=== PATIENT | female | born 1955 | race Caucasian/White ===

== ENCOUNTER 2017-12-15 17:25 | Inpatient (IN) | payer MEDICAID, OTHER ==
[~2017-12-15] VITALS: Ht 154.9 cm; Wt 91.2 kg
[2017-12-15] MEDS ORDERED: AMOX500C2 PO (18:30)
[2017-12-15] MEDS ORDERED: DIPH25TA19 PO (18:30)
[2017-12-15] MEDS ORDERED: OMEP20 PO (18:30)
[2017-12-15] MEDS ORDERED: TYL3B PO (18:30)
[2017-12-15] MEDS ORDERED: LISI-661 PO (18:30)
[2017-12-15 20:17] LABS: BASOPHILS % (AUTO) 1.3 % (0.0-2.0); EOSINOPHILS % (AUTO) 0.8 % (1.0-6.0); HEMATOCRIT 38.2 % (36-46); HEMOGLOBIN 12.7 g/dL (12.0-16.0); LYMPHOCYTES # (AUTO) 2.7 K/uL (1.0-4.8); LYMPHOCYTES % (AUTO) 43.9 % (22.0-44.0); MEAN CORPUSCULAR HEMOGLOBIN 26.8 pg (26.0-34.0); MEAN CORPUSCULAR HGB CONC 33.3 G/dL (31.0-37.0); MEAN CORPUSCULAR VOLUME 80 fL (80-100); MONOCYTES # (AUTO) 0.4 K/uL (0.1-1.0); MONOCYTES % (AUTO) 7.3 % (2.0-9.0); NEUTROPHILS # (AUTO) 2.9 K/uL (1.8-7.7); NEUTROPHILS % (AUTO) 46.7 % (40.0-70.0); PLATELET COUNT (AUTO) 235 K/uL (150-450); RED BLOOD CELL COUNT(AUTO) 4.75 MIL/uL (4.00-5.20); RED CELL DISTRIBUTION WIDTH 16.5 % (11.5-14.5)
[2017-12-15 20:21] LABS: APPEARANCE,URINE CLOUDY (CLEAR); BILIRUBIN,URINE NEGATIVE (NEGATIVE); GLUCOSE, URINE (UA) NEGATIVE (NEGATIVE); KETONES,URINE NEGATIVE (NEGATIVE); LEUKOCYTE ESTERASE ,URINE LARGE (NEGATIVE); NITRATE,URINE POSITIVE (NEGATIVE); OCCULT BLOOD,URINE TRACE (NEGATIVE); PH,URINE 6.5 (5.0-8.0); PROTEIN,URINE NEGATIVE (NEGATIVE); UROBILINOGEN,URINE 0.2 mg/dL (<=1.0)
[2017-12-15 20:23] LABS: ANION GAP 12 mmol/L (8-16); CALCIUM, TOTAL 8.3 mg/dL (8.8-10.5); CARBON DIOXIDE 26 mmol/L (22-29); CHLORIDE 105 mmol/L (98-107); CREATININE 0.71 mg/dL (0.60-1.30); GLOMERULAR FILTR. RATE CALC > 60 mL/min (>60); GLUCOSE,RANDOM 94 mg/dL (70-110); POTASSIUM 3.9 mmol/L (3.5-5.1); SODIUM SERUM 143 mmol/L (136-145); UREA NITROGEN, BLOOD 12 mg/dL (7-18)
[2017-12-15 20:27] LABS: AMPHET/METH SCREEN,URINE NEGATIVE (NEGATIVE); BARBITURATE SCREEN, URINE NEGATIVE (NEGATIVE); BENZODIAZEPINES SCREEN,URINE NEGATIVE (NEGATIVE); CANNABINOID SCREEN,URINE NEGATIVE (NEGATIVE); COCAINE SCREEN,URINE NEGATIVE (NEGATIVE); METHADONE SCREEN, URINE NEGATIVE (NEGATIVE); OPIATE SCREEN,URINE NEGATIVE (NEGATIVE)
[2017-12-15 20:29] LABS: PHENCYCLIDINE SCREEN,URINE NEGATIVE (NEGATIVE)
[2017-12-15 20:29] LABS: ALANINE AMINOTRANSFERASE 35 U/L (12-78); ALBUMIN 3.5 g/dL (3.4-5.0); ALKALINE PHOSPHATASE 123 U/L (46-116); ASPARTATE AMINOTRANSFERASE 26 U/L (15-37); BILIRUBIN,TOTAL 0.2 mg/dL (0.1-1.0); TOTAL PROTEIN, SERUM 7.2 g/dL (6.4-8.2)
[2017-12-15 21:11] LABS: BACTERIA,URINE Many /HPF (None Seen); RBC,URINE 0-2 /HPF (0-2); WBC,URINE >100 /HPF (0-5)
[2017-12-15 21:12] LABS: SQUAMOUS EPITHELIAL CELL,UR Moderate /LPF (None Seen)
[2017-12-15] MEDS ORDERED: HALOPERIDOL 5 MG TABLET PO PRN (21:45)
[2017-12-16] MEDS: ZOLPIDEM TARTRATE 10 MG TABLET PO PRN (00:41)
[2017-12-16] MEDS: LORazepam 2 MG TABLET PO PRN ×2 (00:41→09:45)
[2017-12-16 00:54] VITALS: BP 153/94
[2017-12-16] MEDS ORDERED: PNEUMOCOCCAL VACCINE POLYVALENT 0.5 ML VIAL [PPSV23] IM ONE (01:15)
[2017-12-16 05:56] LABS: BASOPHILS % (AUTO) 1.3 % (0.0-2.0); EOSINOPHILS % (AUTO) 2.1 % (1.0-6.0); HEMATOCRIT 38.1 % (36-46); HEMOGLOBIN 12.7 g/dL (12.0-16.0); MEAN CORPUSCULAR HEMOGLOBIN 26.7 pg (26.0-34.0); MEAN CORPUSCULAR HGB CONC 33.3 G/dL (31.0-37.0); MEAN CORPUSCULAR VOLUME 80 fL (80-100); MONOCYTES # (AUTO) 0.5 K/uL (0.1-1.0); MONOCYTES % (AUTO) 7.4 % (2.0-9.0); NEUTROPHILS # (AUTO) 2.7 K/uL (1.8-7.7); NEUTROPHILS % (AUTO) 42.2 % (40.0-70.0); PLATELET COUNT (AUTO) 209 K/uL (150-450); RED BLOOD CELL COUNT(AUTO) 4.75 MIL/uL (4.00-5.20); RED CELL DISTRIBUTION WIDTH 16.6 % (11.5-14.5)
[2017-12-16 06:04] LABS: HEMOGLOBIN A1C 5.7 % (4.5-6.2)
[2017-12-16 06:20] LABS: ALANINE AMINOTRANSFERASE 34 U/L (12-78); ALBUMIN 3.3 g/dL (3.4-5.0); ALKALINE PHOSPHATASE 110 U/L (46-116); ANION GAP 7 mmol/L (8-16); ASPARTATE AMINOTRANSFERASE 25 U/L (15-37); BILIRUBIN,TOTAL 0.5 mg/dL (0.1-1.0); CALCIUM, TOTAL 7.9 mg/dL (8.8-10.5); CARBON DIOXIDE 26 mmol/L (22-29); CHLORIDE 105 mmol/L (98-107); CHOL/HDL RATIO 2.7 (3.9-5.7); CHOLESTEROL 133 mg/dL (131-200); CREATININE 0.64 mg/dL (0.60-1.30); GLOMERULAR FILTR. RATE CALC > 60 mL/min (>60); GLUCOSE,RANDOM 81 mg/dL (70-110); HDL CHOLESTEROL 50 mg/dL (40-60); LDL CHOL (CALC.) 56 mg/dL (0-130); POTASSIUM 3.6 mmol/L (3.5-5.1); SODIUM SERUM 138 mmol/L (136-145); THYROID STIMULATING HORMONE 2.78 uIU/mL (0.36-3.74); TOTAL PROTEIN, SERUM 7.1 g/dL (6.4-8.2); TRIGLYCERIDES 135 mg/dL (15-150); UREA NITROGEN, BLOOD 11 mg/dL (7-18)
[2017-12-16] MEDS ORDERED: CloNIDine HCL 0.1 MG TABLET PO PRN (06:30)
[2017-12-16] MEDS ORDERED: MAGNESIUM HYDROXIDE SUSPENSION 30 ML UDCUP PO PRN (06:30)
[2017-12-16] MEDS ORDERED: GuaiFENesin/D-METHORPHAN [SUGAR-FREE] 200-20MG/10 ML SYRUP UDCUP PO PRN (06:30)
[2017-12-16] MEDS ORDERED: LOPERAMIDE HCL 2 MG CAPSULE PO PRN (06:30)
[2017-12-16] MEDS ORDERED: DOCUSATE SODIUM 100 MG CAPSULE PO PRN (06:30)
[2017-12-16] MEDS ORDERED: ALBUTEROL SULFATE HFA 90 MCG/PUFF 8 GM INHALER IH PRN (06:30)
[2017-12-16] MEDS ORDERED: MAG HYDROX/AL HYDROX/SIMETH ES 30 ML SUSPENSION UDCUP PO PRN (06:30)
[2017-12-16] MEDS ORDERED: ONDANSETRON HCL 4 MG TABLET PO PRN (06:30)
[2017-12-16] MEDS ORDERED: PETROLATUM,WHITE 71 GM JELLY TP PRN (06:30)
[2017-12-16 08:05] VITALS: BP 161/105
[2017-12-16] MEDS: CIPROFLOXACIN HCL 500 MG TABLET PO SCH ×2 (09:45→16:55)
[2017-12-16] MEDS: OLANZapine 5 MG RAPDIS TABLET PO SCH (16:55)
[2017-12-17 03:05] VITALS: BP 162/100
[2017-12-17 08:11] VITALS: BP 158/100
[2017-12-17] MEDS ORDERED: OMEPRAZOLE 20 MG CAPSULE PO SCH (09:00)
[2017-12-17] MEDS: OLANZapine 5 MG RAPDIS TABLET PO SCH ×2 (09:22→16:37)
[2017-12-17] MEDS: OMEPRAZOLE 20 MG CAPSULE PO SCH (09:22)
[2017-12-17] MEDS: LISINOPRIL 10 MG TABLET PO SCH (09:22)
[2017-12-17] MEDS: CIPROFLOXACIN HCL 500 MG TABLET PO SCH ×2 (09:22→16:37)
[2017-12-17 20:31] VITALS: BP 152/98
[2017-12-18 04:16] VITALS: BP 149/79
[2017-12-18] MEDS: OLANZapine 5 MG RAPDIS TABLET PO SCH ×2 (09:21→16:32)
[2017-12-18] MEDS: LISINOPRIL 10 MG TABLET PO SCH (09:21)
[2017-12-18] MEDS: CIPROFLOXACIN HCL 500 MG TABLET PO SCH ×2 (09:21→16:32)
[2017-12-18] MEDS: OMEPRAZOLE 20 MG CAPSULE PO SCH (09:21)
[2017-12-18 10:23] VITALS: BP 140/95
[2017-12-18 19:04] VITALS: BP 136/86
[2017-12-18] MEDS: ZOLPIDEM TARTRATE 10 MG TABLET PO PRN (20:35)
[2017-12-19 09:23] VITALS: BP 152/90
[2017-12-19] MEDS: LISINOPRIL 10 MG TABLET PO SCH (09:29)
[2017-12-19] MEDS: CIPROFLOXACIN HCL 500 MG TABLET PO SCH ×2 (09:29→16:29)
[2017-12-19] MEDS: OLANZapine 5 MG RAPDIS TABLET PO SCH ×2 (09:29→16:29)
[2017-12-19] MEDS: OMEPRAZOLE 20 MG CAPSULE PO SCH (09:29)
[2017-12-19 18:02] VITALS: BP 130/76
[2017-12-19 20:15] VITALS: BP 154/89
[2017-12-19] MEDS: IBUPROFEN 400 MG TABLET PO PRN (20:15)
[2017-12-19] MEDS: ZOLPIDEM TARTRATE 10 MG TABLET PO PRN (21:26)
[2017-12-20 09:11] VITALS: BP 143/96
[2017-12-20] MEDS: LISINOPRIL 10 MG TABLET PO SCH (09:29)
[2017-12-20] MEDS: OLANZapine 5 MG RAPDIS TABLET PO SCH ×2 (09:29→17:26)
[2017-12-20] MEDS: OMEPRAZOLE 20 MG CAPSULE PO SCH (09:29)
[2017-12-20] MEDS: CIPROFLOXACIN HCL 500 MG TABLET PO SCH ×2 (09:29→17:26)
[2017-12-20 13:41] VITALS: BP 130/85
[2017-12-20] MEDS: ACETAMINOPHEN 325 MG TABLET PO PRN (13:41)
[2017-12-20 20:42] VITALS: BP 139/75
[2017-12-20 20:44] VITALS: BP 153/90
[2017-12-20] MEDS: IBUPROFEN 400 MG TABLET PO PRN (20:44)
[2017-12-20] MEDS: ZOLPIDEM TARTRATE 10 MG TABLET PO PRN (21:54)
[2017-12-21] MEDS: OLANZapine 5 MG RAPDIS TABLET PO SCH ×2 (09:00→16:15)
[2017-12-21 09:41] VITALS: BP 150/72
[2017-12-21] MEDS: IBUPROFEN 400 MG TABLET PO PRN (09:41)
[2017-12-21] MEDS: LISINOPRIL 10 MG TABLET PO SCH (10:39)
[2017-12-21] MEDS: CIPROFLOXACIN HCL 500 MG TABLET PO SCH ×2 (10:39→16:15)
[2017-12-21] MEDS: OMEPRAZOLE 20 MG CAPSULE PO SCH (10:39)
[2017-12-21] MEDS: LORazepam 2 MG TABLET PO PRN (16:18)
[2017-12-21 17:12] VITALS: BP 139/77
[2017-12-22 08:02] VITALS: BP 146/77
[2017-12-22] MEDS: LISINOPRIL 10 MG TABLET PO SCH (08:03)
[2017-12-22] MEDS: CIPROFLOXACIN HCL 500 MG TABLET PO SCH ×2 (08:03→16:21)
[2017-12-22] MEDS: OMEPRAZOLE 20 MG CAPSULE PO SCH (08:04)
[2017-12-22] MEDS: OLANZapine 5 MG RAPDIS TABLET PO SCH ×2 (08:04→16:21)
[2017-12-22] MEDS: IBUPROFEN 400 MG TABLET PO PRN ×2 (12:18→20:37)
[2017-12-22 17:59] VITALS: BP 130/74
[2017-12-22 20:37] VITALS: BP 162/83
[2017-12-22] MEDS: LORazepam 2 MG TABLET PO PRN (21:30)
[2017-12-22 21:37] VITALS: BP 159/98
[2017-12-23] MEDS: OMEPRAZOLE 20 MG CAPSULE PO SCH (09:05)
[2017-12-23] MEDS: AmLODIPine BESYLATE 5 MG TABLET PO SCH (09:05)
[2017-12-23] MEDS: OLANZapine 5 MG RAPDIS TABLET PO SCH ×2 (09:06→16:23)
[2017-12-23] MEDS: LISINOPRIL 10 MG TABLET PO SCH (09:06)
[2017-12-23 10:09] VITALS: BP 132/88
[2017-12-23 16:15] VITALS: BP 115/73
[2017-12-23] MEDS: ACETAMINOPHEN 325 MG TABLET PO PRN (16:22)
[2017-12-23 17:22] VITALS: BP 140/76
[2017-12-23] MEDS: ZOLPIDEM TARTRATE 10 MG TABLET PO PRN (20:33)
[2017-12-24] MEDS: OMEPRAZOLE 20 MG CAPSULE PO SCH (08:54)
[2017-12-24] MEDS: LISINOPRIL 10 MG TABLET PO SCH (08:54)
[2017-12-24] MEDS: AmLODIPine BESYLATE 5 MG TABLET PO SCH (08:54)
[2017-12-24] MEDS: OLANZapine 5 MG RAPDIS TABLET PO SCH ×2 (08:54→16:32)
[2017-12-24 10:38] VITALS: BP 140/79
[2017-12-24 19:27] VITALS: BP 124/68
[2017-12-25 00:15] VITALS: BP 125/75
[2017-12-25] MEDS: ZOLPIDEM TARTRATE 10 MG TABLET PO PRN (00:19)
[2017-12-25 09:15] VITALS: BP 154/84
[2017-12-25] MEDS: AmLODIPine BESYLATE 5 MG TABLET PO SCH (09:29)
[2017-12-25] MEDS: OMEPRAZOLE 20 MG CAPSULE PO SCH (09:29)
[2017-12-25] MEDS: LISINOPRIL 10 MG TABLET PO SCH (09:29)
[2017-12-25] MEDS: OLANZapine 5 MG RAPDIS TABLET PO SCH (09:30)
[2017-12-25] MEDS ORDERED: OLAN5TAB40 PO (09:40)
[2017-12-25] MEDS ORDERED: AMLO-511 PO (09:40)
== END 2017-12-25 14:15 | disposition home or self-care (01) | DRG 750 ==
LOC: EMS 17:26 → 3EI 22:00
PROVIDERS: ADMIT Psychiatry & Neurology Child & Adolescent Psychiatry; ATTEND Psychiatry & Neurology Child & Adolescent Psychiatry
DX: F20.9 Schizophrenia, unspecified (principal); Z91.14 Patient's other noncompliance with medication regimen; F10.10 Alcohol abuse, uncomplicated; F43.10 Post-traumatic stress disorder, unspecified; I10 Essential (primary) hypertension; K21.9 Gastro-esophageal reflux disease without esophagitis; N39.0 Urinary tract infection, site not specified; F32.9 Major depressive disorder, single episode, unspecified; Z28.21 Immunization not carried out because of patient refusal; Z79.899 Other long term (current) drug therapy; Z71.41 Alcohol abuse counseling and surveillance of alcoholic
CPT/HCPCS: 83036; 84439; 84443; 87086; 99285; G0480

== ENCOUNTER 2018-06-26 11:07 | Inpatient (IN) | payer MEDICAID, OTHER ==
[~2018-06-26] VITALS: Ht 157.5 cm; Wt 87.1 kg
[~2018-06-26 11:07] MED LIST: AMLO-511 PO; LISI-661 PO; OLAN5TAB40 PO; OMEP20 PO
[2018-06-26] MEDS ORDERED: IBUPROFEN 400 MG TABLET PO PRN (14:00)
[2018-06-26] MEDS ORDERED: ACETAMINOPHEN 325 MG TABLET PO PRN (14:00)
[2018-06-26] MEDS ORDERED: HALOPERIDOL 5 MG TABLET PO PRN (14:00)
[2018-06-26 14:05] LABS: BASOPHILS % (AUTO) 1.3 % (0.0-2.0); EOSINOPHILS % (AUTO) 0.1 % (1.0-6.0); HEMATOCRIT 39.5 % (36-46); HEMOGLOBIN 13.1 g/dL (12.0-16.0); LYMPHOCYTES # (AUTO) 2.1 K/uL (1.0-4.8); LYMPHOCYTES % (AUTO) 27.2 % (22.0-44.0); MEAN CORPUSCULAR HEMOGLOBIN 25.7 pg (26.0-34.0); MEAN CORPUSCULAR HGB CONC 33.1 G/dL (31.0-37.0); MEAN CORPUSCULAR VOLUME 78 fL (80-100); MONOCYTES # (AUTO) 0.7 K/uL (0.1-1.0); MONOCYTES % (AUTO) 8.6 % (2.0-9.0); NEUTROPHILS # (AUTO) 4.9 K/uL (1.8-7.7); NEUTROPHILS % (AUTO) 62.8 % (40.0-70.0); PLATELET COUNT (AUTO) 296 K/uL (150-450); RED BLOOD CELL COUNT(AUTO) 5.09 MIL/uL (4.00-5.20)
[2018-06-26 14:14] LABS: ANION GAP 8 mmol/L (8-16); CALCIUM, TOTAL 9.1 mg/dL (8.8-10.5); CARBON DIOXIDE 29 mmol/L (22-29); CHLORIDE 101 mmol/L (98-107); CREATININE 0.64 mg/dL (0.60-1.30); GLOMERULAR FILTR. RATE CALC > 60 mL/min (>60); GLUCOSE,RANDOM 109 mg/dL (70-110); POTASSIUM 3.4 mmol/L (3.5-5.1); SODIUM SERUM 138 mmol/L (136-145); UREA NITROGEN, BLOOD 7 mg/dL (7-18)
[2018-06-26 14:20] LABS: ALANINE AMINOTRANSFERASE 101 U/L (12-78); ALBUMIN 3.9 g/dL (3.4-5.0); ALKALINE PHOSPHATASE 124 U/L (46-116); ASPARTATE AMINOTRANSFERASE 76 U/L (15-37); BILIRUBIN,TOTAL 0.8 mg/dL (0.1-1.0); TOTAL PROTEIN, SERUM 8.1 g/dL (6.4-8.2)
[2018-06-26 14:52] LABS: AMPHET/METH SCREEN,URINE NEGATIVE (NEGATIVE); BARBITURATE SCREEN, URINE NEGATIVE (NEGATIVE); BENZODIAZEPINES SCREEN,URINE NEGATIVE (NEGATIVE); CANNABINOID SCREEN,URINE NEGATIVE (NEGATIVE); COCAINE SCREEN,URINE NEGATIVE (NEGATIVE); METHADONE SCREEN, URINE NEGATIVE (NEGATIVE); OPIATE SCREEN,URINE NEGATIVE (NEGATIVE)
[2018-06-26 14:53] LABS: PHENCYCLIDINE SCREEN,URINE NEGATIVE (NEGATIVE)
[2018-06-26] MEDS ORDERED: DiphenhydrAMINE HCL 50 MG/ML VIAL ONE (17:03)
[2018-06-26] MEDS ORDERED: LORazepam 2 MG/ML VIAL ONE (17:03)
[2018-06-26] MEDS ORDERED: DiphenhydrAMINE HCL 50 MG/ML VIAL IM ONE (17:15)
[2018-06-26] MEDS ORDERED: LORazepam 2 MG/ML VIAL IM ONE (17:15)
[2018-06-26] MEDS ORDERED: HALOPERIDOL LACTATE 5 MG/ML VIAL IM ONE (17:15)
[2018-06-26 17:54] VITALS: BP 110/74
[2018-06-26] MEDS ORDERED: GuaiFENesin/D-METHORPHAN [SUGAR-FREE] 200-20MG/10 ML SYRUP UDCUP PO PRN (18:00)
[2018-06-26] MEDS ORDERED: ALBUTEROL SULFATE HFA 90 MCG/PUFF 8 GM INHALER IH PRN (18:00)
[2018-06-26] MEDS ORDERED: DOCUSATE SODIUM 100 MG CAPSULE PO PRN (18:00)
[2018-06-26] MEDS ORDERED: LOPERAMIDE HCL 2 MG CAPSULE PO PRN (18:00)
[2018-06-26] MEDS ORDERED: CloNIDine HCL 0.1 MG TABLET PO PRN (18:00)
[2018-06-26] MEDS ORDERED: ONDANSETRON HCL 4 MG TABLET PO PRN (18:00)
[2018-06-26] MEDS ORDERED: PETROLATUM,WHITE 71 GM JELLY TP PRN (18:00)
[2018-06-26] MEDS ORDERED: MAGNESIUM HYDROXIDE SUSPENSION 30 ML UDCUP PO PRN (18:00)
[2018-06-26] MEDS ORDERED: MAG HYDROX/AL HYDROX/SIMETH ES 30 ML SUSPENSION UDCUP PO PRN (18:00)
[2018-06-26] MEDS ORDERED: NICOTINE 14 MG/24 HOUR PATCH TD PRN (18:00)
[2018-06-26] MEDS ORDERED: PNEUMOCOCCAL VACCINE POLYVALENT 0.5 ML VIAL [PPSV23] IM ONE (18:30)
[2018-06-27 06:23] VITALS: BP 118/75
[2018-06-27 08:15] VITALS: BP 116/57
[2018-06-27 08:37] LABS: BASOPHILS % (AUTO) 0.9 % (0.0-2.0); EOSINOPHILS % (AUTO) 0.7 % (1.0-6.0); HEMATOCRIT 36.8 % (36-46); HEMOGLOBIN 12.2 g/dL (12.0-16.0); LYMPHOCYTES # (AUTO) 2.6 K/uL (1.0-4.8); MEAN CORPUSCULAR HEMOGLOBIN 25.6 pg (26.0-34.0); MEAN CORPUSCULAR HGB CONC 33.2 G/dL (31.0-37.0); MEAN CORPUSCULAR VOLUME 77 fL (80-100); MONOCYTES # (AUTO) 0.5 K/uL (0.1-1.0); MONOCYTES % (AUTO) 7.4 % (2.0-9.0); NEUTROPHILS # (AUTO) 3.7 K/uL (1.8-7.7); PLATELET COUNT (AUTO) 241 K/uL (150-450); RED BLOOD CELL COUNT(AUTO) 4.77 MIL/uL (4.00-5.20)
[2018-06-27] MEDS: LISINOPRIL 10 MG TABLET PO SCH (09:10)
[2018-06-27] MEDS: AmLODIPine BESYLATE 5 MG TABLET PO SCH (09:11)
[2018-06-27 09:13] LABS: ALANINE AMINOTRANSFERASE 74 U/L (12-78); ALBUMIN 3.1 g/dL (3.4-5.0); ALKALINE PHOSPHATASE 104 U/L (46-116); ANION GAP 10 mmol/L (8-16); ASPARTATE AMINOTRANSFERASE 58 U/L (15-37); BILIRUBIN,TOTAL 0.7 mg/dL (0.1-1.0); CALCIUM, TOTAL 8.7 mg/dL (8.8-10.5); CARBON DIOXIDE 29 mmol/L (22-29); CHLORIDE 101 mmol/L (98-107); CHOL/HDL RATIO 2.9 (3.9-5.7); CHOLESTEROL 148 mg/dL (131-200); CREATININE 0.72 mg/dL (0.60-1.30); GLOMERULAR FILTR. RATE CALC > 60 mL/min (>60); GLUCOSE,RANDOM 109 mg/dL (70-110); HDL CHOLESTEROL 51 mg/dL (40-60); LDL CHOL (CALC.) 82 mg/dL (0-130); POTASSIUM 3.1 mmol/L (3.5-5.1); SODIUM SERUM 140 mmol/L (136-145); THYROID STIMULATING HORMONE 8.79 uIU/mL (0.36-3.74); TOTAL PROTEIN, SERUM 7.1 g/dL (6.4-8.2); TRIGLYCERIDES 75 mg/dL (15-150); UREA NITROGEN, BLOOD 12 mg/dL (7-18)
[2018-06-27] MEDS: OMEPRAZOLE 20 MG CAPSULE PO SCH (09:17)
[2018-06-27] MEDS ORDERED: POTASSIUM CHLORIDE 20 MEQ ER TABLET PO ONE (11:15)
[2018-06-27 16:05] VITALS: BP 117/62
[2018-06-27] MEDS: OLANZapine 5 MG RAPDIS TABLET PO SCH (20:20)
[2018-06-28 06:56] VITALS: BP 120/68
[2018-06-28 08:08] VITALS: BP 105/60
[2018-06-28] MEDS: LISINOPRIL 10 MG TABLET PO SCH (08:28)
[2018-06-28] MEDS: AmLODIPine BESYLATE 5 MG TABLET PO SCH (08:28)
[2018-06-28] MEDS: OMEPRAZOLE 20 MG CAPSULE PO SCH (08:28)
[2018-06-28 09:03] LABS: ANION GAP 6 mmol/L (8-16); CALCIUM, TOTAL 8.9 mg/dL (8.8-10.5); CARBON DIOXIDE 30 mmol/L (22-29); CHLORIDE 103 mmol/L (98-107); CREATININE 0.64 mg/dL (0.60-1.30); FREE T4 (FREE THYROXINE) 0.98 ng/dL (0.76-1.46); GLOMERULAR FILTR. RATE CALC > 60 mL/min (>60); GLUCOSE,RANDOM 88 mg/dL (70-110); POTASSIUM 3.8 mmol/L (3.5-5.1); SODIUM SERUM 139 mmol/L (136-145)
[2018-06-28 09:09] LABS: UREA NITROGEN, BLOOD 14 mg/dL (7-18)
[2018-06-28 16:58] VITALS: BP 126/76
[2018-06-28 20:04] VITALS: BP 131/78
[2018-06-28] MEDS: ACETAMINOPHEN 325 MG TABLET PO PRN (20:06)
[2018-06-28] MEDS: OLANZapine 5 MG RAPDIS TABLET PO SCH (21:06)
[2018-06-28] MEDS: ZOLPIDEM TARTRATE 10 MG TABLET PO PRN (21:41)
[2018-06-29 07:05] VITALS: BP 142/77
[2018-06-29] MEDS: LISINOPRIL 10 MG TABLET PO SCH (08:14)
[2018-06-29] MEDS: OMEPRAZOLE 20 MG CAPSULE PO SCH (08:14)
[2018-06-29] MEDS: AmLODIPine BESYLATE 5 MG TABLET PO SCH (08:14)
[2018-06-29 08:30] VITALS: BP 122/78
[2018-06-29 12:56] VITALS: BP 130/81
[2018-06-29] MEDS: ACETAMINOPHEN 325 MG TABLET PO PRN (12:56)
[2018-06-29 16:22] VITALS: BP 119/64
[2018-06-29] MEDS: IBUPROFEN 400 MG TABLET PO PRN (16:24)
[2018-06-29] MEDS: LORazepam 2 MG TABLET PO PRN (18:39)
[2018-06-29] MEDS: OLANZapine 5 MG RAPDIS TABLET PO SCH (20:14)
[2018-06-30 00:44] VITALS: BP 126/60
[2018-06-30] MEDS: AmLODIPine BESYLATE 5 MG TABLET PO SCH (08:00)
[2018-06-30] MEDS: LISINOPRIL 10 MG TABLET PO SCH (08:00)
[2018-06-30] MEDS: OMEPRAZOLE 20 MG CAPSULE PO SCH (08:00)
[2018-06-30 08:14] VITALS: BP 145/94
[2018-06-30] MEDS: ACETAMINOPHEN 325 MG TABLET PO PRN (13:08)
[2018-06-30] MEDS: LORazepam 2 MG TABLET PO PRN (13:10)
[2018-06-30 16:11] VITALS: BP 123/74
[2018-06-30] MEDS: ZOLPIDEM TARTRATE 10 MG TABLET PO PRN (20:53)
[2018-06-30] MEDS: OLANZapine 5 MG RAPDIS TABLET PO SCH (20:53)
[2018-07-01 07:13] VITALS: BP 117/77
[2018-07-01 08:16] VITALS: BP 126/84
[2018-07-01] MEDS: AmLODIPine BESYLATE 5 MG TABLET PO SCH (08:30)
[2018-07-01] MEDS: LISINOPRIL 10 MG TABLET PO SCH (08:30)
[2018-07-01] MEDS: OMEPRAZOLE 20 MG CAPSULE PO SCH (08:30)
[2018-07-01] MEDS: IBUPROFEN 400 MG TABLET PO PRN (08:31)
[2018-07-01] MEDS: LORazepam 2 MG TABLET PO PRN ×2 (08:33→16:38)
[2018-07-01 16:05] VITALS: BP 144/76
[2018-07-01] MEDS: OLANZapine 5 MG RAPDIS TABLET PO SCH (20:16)
[2018-07-02 06:18] VITALS: BP 120/63
[2018-07-02] MEDS: OMEPRAZOLE 20 MG CAPSULE PO SCH (08:14)
[2018-07-02] MEDS: LISINOPRIL 10 MG TABLET PO SCH (08:14)
[2018-07-02] MEDS: AmLODIPine BESYLATE 5 MG TABLET PO SCH (08:14)
[2018-07-02 08:23] VITALS: BP 130/76
[2018-07-02] MEDS: LORazepam 2 MG TABLET PO PRN ×2 (13:10→19:06)
[2018-07-02 16:20] VITALS: BP 125/84
[2018-07-02] MEDS: ACETAMINOPHEN 325 MG TABLET PO PRN (16:20)
[2018-07-02] MEDS: OLANZapine 5 MG RAPDIS TABLET PO SCH (20:16)
[2018-07-02] MEDS: ZOLPIDEM TARTRATE 10 MG TABLET PO PRN (20:58)
[2018-07-03 07:11] VITALS: BP 127/77
[2018-07-03] MEDS: LORazepam 2 MG TABLET PO PRN ×2 (08:18→16:15)
[2018-07-03] MEDS: OMEPRAZOLE 20 MG CAPSULE PO SCH (08:18)
[2018-07-03] MEDS: IBUPROFEN 400 MG TABLET PO PRN (08:19)
[2018-07-03] MEDS: LISINOPRIL 10 MG TABLET PO SCH (08:19)
[2018-07-03] MEDS: AmLODIPine BESYLATE 5 MG TABLET PO SCH (08:19)
[2018-07-03 08:21] VITALS: BP 125/64
[2018-07-03 16:29] VITALS: BP 135/74
[2018-07-03] MEDS: ZOLPIDEM TARTRATE 10 MG TABLET PO PRN (20:14)
[2018-07-03] MEDS: OLANZapine 5 MG RAPDIS TABLET PO SCH (20:14)
[2018-07-04] MEDS ORDERED: OLAN5TAB40 PO (04:10)
[2018-07-04] MEDS ORDERED: OMEP20 PO (04:11)
[2018-07-04] MEDS ORDERED: LISI-661 PO (04:12)
[2018-07-04] MEDS ORDERED: AMLO-511 PO (04:12)
[2018-07-04] MEDS: ACETAMINOPHEN 325 MG TABLET PO PRN (06:31)
[2018-07-04 06:34] VITALS: BP 143/90
[2018-07-04] MEDS: LORazepam 2 MG TABLET PO PRN (07:22)
[2018-07-04 08:00] VITALS: BP 120/76
[2018-07-04] MEDS: LISINOPRIL 10 MG TABLET PO SCH (09:30)
[2018-07-04] MEDS: AmLODIPine BESYLATE 5 MG TABLET PO SCH (09:30)
[2018-07-04] MEDS: OMEPRAZOLE 20 MG CAPSULE PO SCH (09:30)
== END 2018-07-04 10:10 | disposition home or self-care (01) | DRG 750 ==
LOC: EMS 11:11 → B3A 14:53
PROVIDERS: ADMIT Psychiatry & Neurology Psychiatry; ATTEND Psychiatry & Neurology Psychiatry
DX: F20.0 Paranoid schizophrenia (principal); R45.851 Suicidal ideations; R74.0 Nonspecific elevation of levels of transaminase and lactic acid dehydrogenase [LDH]; F43.10 Post-traumatic stress disorder, unspecified; I10 Essential (primary) hypertension; K21.9 Gastro-esophageal reflux disease without esophagitis; E87.6 Hypokalemia; F32.9 Major depressive disorder, single episode, unspecified; F41.9 Anxiety disorder, unspecified; R94.6 Abnormal results of thyroid function studies; Z79.899 Other long term (current) drug therapy
CPT/HCPCS: 83036; 84439; 84443; 87081; 96372; G0480; J1200; J1630; J2060

== ENCOUNTER 2021-08-07 00:20 | Emergency (ER) | payer MEDICAID, MEDICARE, OTHER ==
[~2021-08-07] VITALS: Ht 152.4 cm; Wt 90.9 kg
[~2021-08-07 00:20] MED LIST changes: +AMLO-257 PO; -AMLO-511 PO; -LISI-661 PO; +LISI-893 PO; -OLAN5TAB40 PO; +OLAN5TAB94 PO
[2021-08-07] MEDS ORDERED: LORazepam 1 MG TABLET PO ONE (01:00)
[2021-08-07 02:30] VITALS: BP 109/63
== END 2021-08-07 02:52 | disposition home or self-care (01) ==
LOC: EMS 00:21
DX: F41.9 Anxiety disorder, unspecified (principal); F32.A Depression, unspecified; I10 Essential (primary) hypertension; F20.9 Schizophrenia, unspecified; Z86.59 Personal history of other mental and behavioral disorders
CPT/HCPCS: 99283